=== PATIENT | female | born 1960 | race Hispanic/Latino ===

== ENCOUNTER 2017-03-02 15:30 | Emergency (ER) | payer SELFPAY ==
[2017-03-02 15:38] VITALS: BP 118/77; PULSE 98; TEMP 97; O2SAT 98
[2017-03-02] MEDS ORDERED: Albuterol-Ipratrop 3 mg / 0.5 (3 ml) UD IH STA (15:59)
--- NOTE | 2017-03-02 16:05 | ED PDOC ---
HPI: CCC, URI, Sore Throat Time Seen by Provider: 03/02/17 15:47 Chief Complaint (Nursing): Respiratory Distress Chief Complaint (Provider): cough History Per: Patient History/Exam Limitations: no limitations Have you had recent travel within the past 21 days to any of the following countries: [place], [place], [place] or [place]?: No Onset/Duration Of Symptoms: Days (x 2) Additional Complaint(s): Amrita Gonzalez is a 57 year old female, with a previous medical history of asthma , who presents to the ED with complaints of a cough associated with yellow sputum production, shortness of breath and wheezing ongoing for 2 days. Patient denies any fevers. PMD: none provided Past Medical History Reviewed: Historical Data, Nursing Documentation, Vital Signs Vital Signs: Last Vital Signs Temp 97 F L 03/02/17 15:35 Pulse 98 H 03/02/17 15:35 Resp 24 03/02/17 17:03 BP 118/77 03/02/17 15:35 Pulse Ox 98 03/02/17 16:08 - Medical History PMH: Asthma, Back Problems, Chronic Pain (fibromyalgia) - Family History Family History: States: Unknown Family Hx - Home Medications Home Medications: Ambulatory Orders Medication Instructions Recorded Albuterol 0.083% [Albuterol 3 ml IH Q8 #1 neb 03/02/17 Sulfate 3 Ml] Azithromycin [Zithromax] 250 mg PO DAILY #6 tab 03/02/17 predniSONE [predniSONE Tab] 10 mg PO TID #15 tab 03/02/17 - Allergies Allergies/Adverse Reactions: Allergies Allergy/AdvReac Type Severity Reaction Status Date / Time codeine Allergy RASH Verified 12/16/15 22:12 Review of Systems ROS Statement: Except As Marked, All Systems Reviewed And Found Negative Constitutional: Negative for: Fever, Chills Respiratory: Positive for: Cough, Shortness of Breath, Sputum (yellow), Wheezing Physical Exam - Reviewed Nursing Documentation Reviewed: Yes - Physical Exam Appears: Positive for: Well, Non-toxic, No Acute Distress Head Exam: Positive for: ATRAUMATIC, NORMAL INSPECTION, NORMOCEPHALIC Skin: Positive for: Normal Color, Warm, Dry Eye Exam: Positive for: Normal appearance ENT: Positive for: Normal ENT Inspection Neck: Positive for: Normal, Painless ROM, Supple Cardiovascular/Chest: Positive for: Regular Rate, Rhythm Respiratory: Positive for: Decreased Breath Sounds, Rhonchi (scattered ). Negative for: Respiratory Distress Extremity: Positive for: Normal ROM. Negative for: Tenderness, Pedal Edema Neurologic/Psych: Positive for: Alert, Oriented - ECG O2 Sat by Pulse Oximetry: 98 (RA) Pulse Ox Interpretation: Normal - Progress Re-evaluation Time: 17:22 Condition: Improved Medical Decision Making Medical Decision Making: Initial Plan: * duo-neb 3 ml IH * solu-medrol 125 mg IV * peak flow pre/post treatment * CXR * reevaluation Scribe Attestation: Documented by Lori Lewis, acting as a scribe for Jose G Nelson MD Provider Scribe Attestation: All medical record entries made by the Scribe were at my direction and personally dictated by me. I have reviewed the chart and agree that the record accurately reflects my personal performance of the history, physical exam, medical decision making, and the department course for this patient. I have also personally directed, reviewed, and agree with the discharge instructions and disposition. Disposition - Clinical Impression Clinical Impression: Bronchitis - Patient ED Disposition Is Patient to be Admitted: No Counseled Patient/Family Regarding: Studies Performed, Diagnosis, Need For Followup, Rx Given - Disposition Referrals: [facility] [Outside] Disposition: Routine/Home Disposition Time: 17:22 Condition: FAIR Prescriptions: Albuterol 0.083% [Albuterol Sulfate 3 Ml] 3 ml IH Q8 #1 neb Azithromycin [Zithromax] 250 mg PO DAILY #6 tab predniSONE [predniSONE Tab] 10 mg PO TID #15 tab Instructions: Acute Bronchitis (ED)
--- NOTE | 2017-03-02 16:36 | RAD ---
HISTORY: cough COMPARISON: 12/16/2015. TECHNIQUE: Chest PA and lateral FINDINGS: LUNGS: There is mild pulmonary hyperinflation and peribronchial thickening with streaky opacities in both lungs. No focal consolidation. PLEURA: No significant pleural effusion identified. No pneumothorax apparent. CARDIOVASCULAR: Normal. OSSEOUS STRUCTURES: No significant abnormalities. VISUALIZED UPPER ABDOMEN: Normal. OTHER FINDINGS: None. IMPRESSION: Findings are most compatible with reactive small airway disease/ COPD/ viral/ atypical bronchitis. No lobar pneumonia.
[2017-03-02 17:04] VITALS: RESP 24
== END 2017-03-02 17:50 | disposition home or self-care (01) ==
LOC: H.ER 15:30
DX: J20.9 Acute bronchitis, unspecified (principal); M79.7 Fibromyalgia; G89.29 Other chronic pain
CPT/HCPCS: 71020; 96374; 99283; J2930

== ENCOUNTER 2018-02-11 18:19 | Emergency (ER) | payer MEDICAID ==
[2018-02-11 18:38] VITALS: BP 118/76; PULSE 89; RESP 16; TEMP 98.6; O2SAT 98
[2018-02-11] MEDS ORDERED: Albuterol-Ipratrop 3 mg / 0.5 (3 ml) UD ONE ×2 (19:07→19:35)
[2018-02-11] MEDS ORDERED: Albuterol-Ipratrop 3 mg / 0.5 (3 ml) UD INH STA ×3 (19:16→19:48)
[2018-02-11] MEDS ORDERED: Promethazine/Cod 6.25mg-10mg/5ml Syr UD PO STA (19:48)
[2018-02-11] MEDS ORDERED: Albuterol 0.083% Inhal Sol (2.5 mg/3 mL) UD INH STA ×2 (19:48→22:11)
[2018-02-11] MEDS ORDERED: Sodium Chloride 0.9% 1,000 ML IV SCH (20:00)
--- NOTE | 2018-02-11 20:03 | ED PDOC ---
HPI: Asthma Time Seen by Provider: 02/11/18 19:11 Chief Complaint (Nursing): Cough, Cold, Congestion Chief Complaint (Provider): Asthma Exacerbation History Per: Patient History/Exam Limitations: no limitations Onset/Duration Of Symptoms: Days (x3) Current Symptoms Are (Timing): Still Present Additional Complaint(s): 58 y/o female with a PMHx of osteoarthritis, asthma, HTN, high cholesterol, fibromyalgia, and pancreatitis presenting for evaluation of worsening asthma x3 days. Patient states that shes been using her inhaler at home with no relief of symptoms. She also states that shes been admitted for asthma in the past, but never intubated. Of note: Patient is also complaining of sore throat since last night. Positive sick contact in granddaughter whos just been diagnosed with strep. She reports chills and body aches. She says shes been taking OTC remedies without relief. She denies fever, nausea, vomiting, urinary symptoms, chest pain, abdominal pain , recent travel. PMD: Dr. Galindo Past Medical History Reviewed: Historical Data, Nursing Documentation, Vital Signs Vital Signs: Last Vital Signs Temp 98.6 F 02/11/18 18:35 Pulse 89 02/11/18 18:35 Resp 16 02/11/18 18:35 BP 118/76 02/11/18 18:35 Pulse Ox 98 02/11/18 18:35 - Medical History PMH: Arthritis (osteoarthritis), Asthma, Back Problems, Fibromyalgia, HTN, Hypercholesterolemia, Pancreatitis, Chronic Pain (fibromyalgia) - Surgical History Surgical History: Cholecystectomy, Tonsillectomy, (x2) Other surgeries: Lumpectomy of left breast - Family History Family History: States: Unknown Family Hx - Social History Current smoker - smoking cessation education provided: Yes (5 cigarettes per week) Alcohol: None Drugs: Denies - Home Medications Home Medications: Ambulatory Orders Medication Instructions Recorded Albuterol 0.083% [Albuterol 3 ml IH Q8 #1 neb 03/02/17 Sulfate 3 Ml] Azithromycin [Zithromax] 250 mg PO DAILY #6 tab 03/02/17 predniSONE [predniSONE Tab] 10 mg PO TID #15 tab 03/02/17 Azithromycin [Zithromax] 250 mg PO QAM #1 pkg 07/07/17 Benzonatate [Tessalon Perle] 100 mg PO TID PRN #15 capsule 07/07/17 Methylprednisolone [Medrol Dosepak] 4 mg PO ASDIR #1 pkg 07/07/17 Albuterol Sulfate [Ventolin Hfa] 1 puff IH Q2 #1 each 02/11/18 Azithromycin [Z-Jack] 250 mg PO DAILY #6 tab 02/11/18 Benzonatate [Tessalon Perles] 100 mg PO Q8 PRN #15 tab 02/11/18 predniSONE [predniSONE Tab] 40 mg PO DAILY #10 tab 02/11/18 - Allergies Allergies/Adverse Reactions: Allergies Allergy/AdvReac Type Severity Reaction Status Date / Time Penicillins Allergy SHORTNESS Verified 07/06/17 22:33 OF BREATH codeine AdvReac ITCHING Verified 02/11/18 18:35 Review of Systems ROS Statement: Except As Marked, All Systems Reviewed And Found Negative Constitutional: Positive for: Chills, Other (body aches). Negative for: Fever Cardiovascular: Negative for: Chest Pain Respiratory: Positive for: Shortness of Breath, Wheezing Gastrointestinal: Negative for: Nausea, Vomiting, Abdominal Pain Musculoskeletal: Negative for: Leg Pain Physical Exam - Reviewed Nursing Documentation Reviewed: Yes Vital Signs Reviewed: Yes - Physical Exam Comments: GENERAL APPEARANCE: Patient is awake, alert, oriented x 3, mildly labored respirations but speaking in full sentences. SKIN: Warm, dry; (-) cyanosis. EYES: (-) conjunctival pallor. ENMT: Mucous membranes moist. Airway patent: (-) stridor. Pharynx: (+) mild erythema, (-) swelling, (-) exudates, uvula midline. Nares: (-) nasal flaring. TMs: (-) bulging, (-) erythema. NECK: Supple, FROM (-) tenderness, (-) stiffness, (-) lymphadenopathy. CHEST AND RESPIRATORY: (+) decreased breath sounds bilaterally, (+) diffuse inspiratory and expiratory wheezing; (-) retractions, (-) rales, (-) rhonchi (- ) accessory muscle use. HEART AND CARDIOVASCULAR: (-) irregularity; (-) murmur, (-) gallop. ABDOMEN AND GI: Soft; (-) tenderness (-) distention (-) rebound (-) CVA tenderness. EXTREMITIES: (-) deformity, (-) edema. NEURO AND PSYCH: Mental status as above; (-) focal findings. (-) facial asymmetry (-) aphasia. Gait steady, speech clear. - Laboratory Results Result Diagrams: 02/11/18 20:23 02/11/18 20:23 - ECG O2 Sat by Pulse Oximetry: 98 (RA) Pulse Ox Interpretation: Normal Medical Decision Making Medical Decision Making: Impression: Sore throat, asthma exacerbation Plan: --BMP --CBC --Duoneb INH x3 --Albuterol INH x1 --1L NS bolus --Solu-Medrol 125mg IVP --Throat culture --IV Insertion --Rapid strep group A antigen --Reevaluation 20:43 Labs reviewed. Significant for elevated WBCs. CXR ordered. Rapid strep: Negative. Throat culture pending. 21:14 CXR as read by SHAWN Aragon demonstrates perihilar thickening. Azithromycin PO ordered for treatment of bronchitis. Upon reevaluation, patient's wheezing has resolved. Respirations are even and non-labored. 22:00 Patient with coughing episode in ED. Patient requesting additional breathing treatment at this time prior to discharge. Albuterol 2.5mg INH and tessalon perle 100mg PO ordered. 22:50 On re-evaluation, patient reports improvement of symptoms, denies SOB or chest pain. On exam, patient remains AAOx3, in no acute distress. On exam, neck is supple, lungs CTA, cardiac RRR, abdomen is soft and non-tender, neuro exam shows no focal findings. VSS, stable for discharge. Diagnostic results d/w the patient in great detail. Dx of asthma exacerbation, bronchitis, SOB, cough, sore throat d/w the patient. Based on history, exam and diagnostic results plan will be for discharge and outpatient follow up with PMD. Advised to follow up with primary care physician in 1-2 days without fail. Advised to take medication as prescribed. Return to the emergency room at any time for any new or worsening symptoms. Patient states she fully agrees with and understands discharge instructions. States that she agrees with the plan and disposition. Verbalized and repeated discharge instructions and plan. I have given the patient opportunity to ask any additional questions. Scribe Attestation: Documented by Omar Keating, acting as a scribe for Violet Aragon PA-C. Provider Scribe Attestation: All medical record entries made by the scribe were at my direction and personally dictated by me. I have reviewed the chart and agree that the record accurately reflects my personal performance of the history, physical exam, medical decision making, and the department course for this patient. I have also personally directed, reviewed, and agree with the discharge instructions and disposition. Disposition - Clinical Impression Clinical Impression: Bronchitis, Asthma exacerbation, SOB (shortness of breath), Cough in adult, Sore throat - Patient ED Disposition Is Patient to be Admitted: No Counseled Patient/Family Regarding: Studies Performed, Diagnosis, Need For Followup, Rx Given - Disposition Referrals: Inna Chandra APN [Family Provider] - Disposition: Routine/Home Disposition Time: 22:54 Condition: STABLE Additional Instructions: FOLLOW UP WITH PMD IN 1-2 DAYS WITHOUT FAIL. RETURN TO ED WITH ANY NEW OR WORSENING SYMPTOMS. Prescriptions: Albuterol Sulfate [Ventolin Hfa] 1 puff IH Q2 #1 each Azithromycin [Z-Jack] 250 mg PO DAILY #6 tab Benzonatate [Tessalon Perles] 100 mg PO Q8 PRN #15 tab PRN Reason: Cough predniSONE [predniSONE Tab] 40 mg PO DAILY #10 tab Instructions: Asthma in Adults, Cough in Adults, Sore Throat in Adults, Shortness of Breath (Dyspnea) (DC), Acute Bronchitis, Medicines for Asthma Forms: [place] (Thai) Print Language: SERBIAN - POA Present On Arrival: None Results - Lab Results Lab Results: 02/11/18 02/11/18 02/11/18 20:23 20:23 20:23 WBC 14.6 H RBC 5.04 Hgb 13.7 Hct 42.0 MCV 83.4 MCH 27.2 MCHC 32.7 L RDW 14.6 H Plt Count 279 MPV 8.1 Neut % (Auto) 65.8 Lymph % (Auto) 24.7 [facility] % (Auto) 5.9 Eos % (Auto) 3.0 Baso % (Auto) 0.6 Neut # (Auto) 9.6 H Lymph # (Auto) 3.6 [facility] # (Auto) 0.9 H Eos # (Auto) 0.4 Baso # (Auto) 0.1 Sodium 145 Potassium 3.4 L Chloride 107 Carbon Dioxide 25 Anion Gap 16 BUN 10 Creatinine 0.7 Est GFR ( Amer) > 60 Est GFR (Non-Af Amer) > 60 Random Glucose 110 H Calcium 9.5 Grp A Beta Strep Ag Negative
[2018-02-11] MEDS ORDERED: Albuterol 0.083% Inhal Sol (2.5 mg/3 mL) UD ONE ×2 (20:13→22:30)
[2018-02-11 20:30] LABS: BASO # 0.1 K/uL (0.0-0.2); BASO % 0.6 % (0.0-2.0); EOS # 0.4 K/uL (0.0-0.7); HEMOGLOBIN 13.7 g/dL (12.0-16.0); LYMPH # 3.6 K/uL (1.0-4.3); LYMPH % 24.7 % (20.0-40.0); MEAN CELL VOLUME 83.4 fl (81.0-99.0); MEAN CORPUSCULAR HEMOGLOBIN 27.2 pg (27.0-31.0); MEAN CORPUSCULAR HGB CONC 32.7 g/dL (33.0-37.0); MEAN PLATELET VOLUME 8.1 fl (7.2-11.7); MONO # 0.9 K/uL (0.0-0.8); MONO % 5.9 % (0.0-10.0); NEUT # 9.6 K/uL (1.8-7.0); NEUT % 65.8 % (50.0-75.0); RBC 5.04 Mil/uL (3.80-5.20); RED CELL DISTRIBUTION WIDTH 14.6 % (11.5-14.5); WHITE BLOOD COUNT 14.6 K/uL (4.8-10.8)
[2018-02-11 20:36] LABS: BLOOD UREA NITROGEN 10 mg/dl (7-17); CALCIUM 9.5 mg/dL (8.4-10.2); GFR AFRICAN-AMERICAN > 60; GFR NON-AFRICAN AMERICAN > 60
--- NOTE | 2018-02-12 10:06 | RAD ---
HISTORY: SOB COMPARISON: 03/02/2017 TECHNIQUE: Chest PA and lateral FINDINGS: LUNGS: No active pulmonary disease. PLEURA: No significant pleural effusion identified. No pneumothorax apparent. CARDIOVASCULAR: Normal. OSSEOUS STRUCTURES: No significant abnormalities. VISUALIZED UPPER ABDOMEN: Normal. OTHER FINDINGS: None. IMPRESSION: No active disease.
== END 2018-02-11 23:21 | disposition home or self-care (01) ==
LOC: H.ER 18:19
DX: J45.901 Unspecified asthma with (acute) exacerbation (principal); J02.9 Acute pharyngitis, unspecified; R05 Cough; J40 Bronchitis, not specified as acute or chronic; E78.00 Pure hypercholesterolemia, unspecified; I10 Essential (primary) hypertension; Z88.0 Allergy status to penicillin; Z88.5 Allergy status to narcotic agent; M79.7 Fibromyalgia
CPT/HCPCS: 71046; 80048; 85025; 87070; 87430; 94640; 96361; 96374; 99282; J2930; J7030